=== PATIENT | female | born 1960 | race Caucasian/White ===

== ENCOUNTER 2021-01-07 08:47 | Emergency (ER) | payer MEDICAID ==
[2021-01-07] MEDS ORDERED: Ketorolac 60 MG/2 ML SDV IM ONE (09:25)
--- NOTE | 2021-01-07 09:27 | EDM.PDOC ---
ED HPI GENERAL MEDICAL PROBLEM - General Chief Complaint: Abdominal Pain Stated Complaint: RT SIDE PAIN Time Seen by Provider: 01/07/21 09:12 Source of Information: Reports: Patient, Family, RN Notes Reviewed History Limitations: Reports: No Limitations - History of Present Illness INITIAL COMMENTS - FREE TEXT/NARRATIVE: 60-year-old female presents emergency department day complaint of right flank pain, has been ongoing for about the last 24 hours does have baseline pain maybe 5 out of 10 but will exacerbate to 10 out of 10 short-lived and then relaxes no nausea or vomiting no fevers has not noticed any blood in her urine no history of nephrolithiasis - Related Data Allergies Allergy/AdvReac Type Severity Reaction Status Date / Time No Known Allergies Allergy Verified 01/07/21 09:05 Home Meds: Home Meds Ketorolac [Toradol] 10 mg PO TID PRN #20 tab 01/07/21 [Rx] Past Medical History - Past Surgical History Female Surgical History: Reports: Hysterectomy Social & Family History - Tobacco Use Tobacco Use Status *Q: Current Every Day Tobacco User Years of Tobacco use: 1 Packs/Tins Daily: 1 ED ROS GENERAL - Review of Systems Review Of Systems: See Below Constitutional: Reports: No Symptoms Respiratory: Reports: No Symptoms Cardiovascular: Reports: No Symptoms GI/Abdominal: Reports: Abdominal Pain. Denies: Nausea, Vomiting : Reports: Flank Pain ED EXAM, GI/ABD - Physical Exam Exam: See Below Exam Limited By: No Limitations General Appearance: Alert, Mild Distress Respiratory/Chest: No Respiratory Distress GI/Abdominal Exam: Normal Bowel Sounds, Soft, Tender (Right flank) Course - Vital Signs Last Recorded V/S: Last Vital Signs Temp 96.5 F L 01/07/21 09:11 Pulse 78 01/07/21 09:11 Resp BP 155/90 H 01/07/21 09:11 Pulse Ox 97 01/07/21 09:11 - Orders/Labs/Meds Labs: Laboratory Tests 01/07/21 Range/Units 09:51 Urine Color Yellow (YELLOW) Urine Appearance Clear (CLEAR) Urine pH 6.0 (5.0-8.0) Ur Specific [place] 1.010 (1.008-1.030) Urine Protein Negative (NEGATIVE) mg/dL Urine Glucose (UA) Negative (NEGATIVE) mg/dL Urine Ketones Negative (NEGATIVE) mg/dL Urine Occult Blood Negative (NEGATIVE) Urine Nitrite Negative (NEGATIVE) Urine Bilirubin Negative (NEGATIVE) Urine Urobilinogen 0.2 (0.2-1.0) EU/dL Ur Leukocyte Esterase Negative (NEGATIVE) Urine RBC 0-5 (0-5) Urine WBC Not seen (0-5) Ur Epithelial Cells Not seen Amorphous Sediment Not seen Urine Bacteria Not seen Urine Mucus Not seen Meds: Medications Discontinued Medications Generic Name Dose Route Start Last Admin Trade Name Freq PRN Reason Stop Dose Admin Ketorolac Tromethamine 60 mg 01/07/21 09:25 01/07/21 09:36 Ketorolac 60 Mg/2 Ml Sdv IM 01/07/21 09:26 60 mg ONETIME ONE Administration Departure - Departure Time of Disposition: 10:30 Disposition: Home, Self-Care 01 Condition: Good Clinical Impression: Functional constipation - Discharge Information Prescriptions: Ketorolac [Toradol] 10 mg PO TID PRN #20 tab PRN Reason: Pain Instructions: Constipation, Adult Referrals: PCP,None [Primary Care Provider] - Forms: ED Department Discharge Additional Instructions: Try the colonoscopy prep, please followup with your primary care provider in 3- 5 days if not better, please call return to the emergency department with worsening of symptoms. Sepsis Event Note (ED) - Evaluation Sepsis Screening Result: No Definite Risk - Focused Exam Vital Signs: Vital Signs Temp Pulse BP Pulse Ox 01/07/21 09:11 96.5 F L 78 155/90 H 97 - Assessment/Plan Plan: Assessment Acuity = acute Site and laterality = functional constipation Etiology = slow transit time Manifestations = none Location of injury = Home Lab values = urinalysis unremarkable CT scan describes moderate amount of stool in the colon otherwise unremarkable Plan I did review CT scan results with her and provided her a copy medication Toradol faxed to [facility] 10 mg p.o. 3 times daily as needed total #20 follow-up primary care as needed she is also provided the colonoscopy prep instructions This note was dictated using [employer] voice recognition software please call with any questions on syntax or grammar.
--- NOTE | 2021-01-07 10:19 | CT ---
Abdomen Pelvis wo Cont CLINICAL HISTORY: Right flank pain COMPARISON: None. TECHNIQUE: Axial tomographic images are obtained from the dome of the diaphragm to the pubic symphysis without IV contrast enhancement. No oral contrast was used. The dosage reduction and iterative reconstruction techniques employed. FINDINGS: The lung bases are clear. The liver shows no mass or biliary dilatation. The gallbladder has a normal contour. The spleen has a normal size and shape. The pancreas shows no mass or inflammatory change. The adrenal glands appear normal bilaterally. The kidneys show no stones or hydronephrosis. The ureters have a normal course and caliber. The bladder has a normal contour. It is nondistended. The aorta shows mild atheromatous plaque. There is no suspicious retroperitoneal adenopathy. The abdominal pelvic fat planes and low pelvic side roberto are well demarcated. The small bowel configuration is nonacute. There is moderate retained stool throughout the colon. Appendix has normal contour. Patient has had previous hysterectomy and salpingo-oophorectomy. IMPRESSION: No mass, adenopathy or inflammatory change. No evidence of urinary calcification or obstruction Moderate retained stool
== END 2021-01-07 11:02 | disposition home or self-care (01) ==
LOC: JP.ED 08:47
DX: K59.04 Chronic idiopathic constipation (principal); Z72.0 Tobacco use
CPT/HCPCS: 74176; 81001; 96372; 99284; J1885